=== PATIENT | female | born 1980 | race Caucasian/White ===

== ENCOUNTER 2016-11-08 11:40 | Emergency (ER) | payer OTHER ==
[2016-11-08 11:53] VITALS: BP 142/73; PULSE 53; RESP 16; O2SAT 99
--- NOTE | 2016-11-08 12:08 | ED.REPORT ---
HPI-Abd Pain F Under 39 Date of Service Nov 08, 2016 ED Provider: Ariel Tanner MD The pt is a 35 y/o female with no pertinent hx who presents to the ED complaining of right flank pain that radiates to her suprapubic region, onset a few hours ago. She describes her pain as "dull and sharp" and rates it "worse than 10" in severity. Her pain is exacerbated with movement and palpation. Associated sx include nausea and vomiting. She denies fever, dysuria, and hematuria. The pt does not have a hx of kidney infection and kidney stones. Nursing Notes Stated Complaint: ABDOMINAL PAIN Chief Complaint: Female Abdominal Pain Nursing Notes Reviewed: Yes ([employer], [employer] NOT RECONCILED) Allergies: Coded Allergies: citric acid (Verified Allergy, Severe, ANAPHYLATIC SHOCK NEEDS TO BE PRETREATED WITH BENEDRYL, 12/16/15) desmopressin (Verified Allergy, Severe, ANAPHYLATIC SHOCK NEEDS TO BE PRETREATED WITH BENEDRYL, 12/16/15) sodium phosphate (Verified Allergy, Severe, ANAPHYLATIC SHOCK NEEDS TO BE PRETREATED WITH BENEDRYL, 12/16/15) hydrocodone (Verified Adverse Reaction, Intermediate, GI, 12/16/15) Scheduled PRN Ibuprofen (Ibuprofen) 400 Mg Tablet 400 MG PO TID PRN PRN For Pain Ondansetron ODT (Ondansetron ODT) 8 Mg Tab.rapdis 8 MG PO Q4H PRN PRN For Nausea oxyCODONE-Acetaminophen 5-325 mg (oxyCODONE-Acetaminophen 5-325 mg) 1 Each Tablet 1-2 TAB PO Q4H PRN PRN For Pain General Time Seen by MD: 12:17 Chief Complaint Flank pain right Hx Obtained From: Patient Arrived By: Walk-in Sudden in Onset?: Yes Onset Occurred: 1 - 4 hours ago Symptom Duration: Since onset Location: : Suprapubic Quality: Dull, Sharp Radiation: : Suprapubic Severity: Current: Severe Severity: Maximum: Severe Past Medical History Past Medical History Bipolar disorder (on lithium) Anxiety (on Klonopin) "mild" von-willebrand's (only required treatment for hysterectomy) Past Surgical History Reports: Cholecystectomy, Hysterectomy Smoking History Unknown if Ever Smoker Social History Other Social History: Good social support Ambulatory Status Independent Review of Systems Constitutional: Denies: Fever GI: Reports: Abdominal pain, Nausea, Vomiting Female: Reports: Flank pain, Denies: Dysuria, Hematuria Complete sys rev & neg: except as marked. Physical Exam Initial Vital Signs Vital Signs (First) Date Time Temp Pulse Resp B/P Pulse Ox O2 Delivery O2 Flow Rate FiO2 11/08/16 11:53 36.5 53 16 142/73 99 Room Air Initial VS: Reviewed, Vital signs normal Head / Eyes: Atraumatic, Normocephalic Neck: Supple, Non-tender, Full range of motion Extremities: Vascular intact, Neuro intact, No swelling, No tenderness Skin: Warm, Dry, No cyanosis Neurologic: Alert, Oriented, Nonfocal General/Constitutional: Awake, Alert Behavior: Positive: Anxious Dramatic and difficult to evaluate. Apparently writhhing in pain before the first dose of pain medication. Respiratory / Chest: Atraumatic, Breath sounds NL, Breath sounds = bilat, No respiratory distress, No rales, No rhonchi, No wheezing Cardiovascular: Heart rate NL, Regular rhythm, Heart sounds NL, No gallop, No murmurs, No rubs Abdomen: Atraumatic, Soft, No guarding, No rebound Tenderness/Guarding/Rebound: Positive: Tender diffuse (disproportionate tenderness) Back: Atraumatic, Full range of motion Right flank pain with light touch. Interpretation & Diagnostics PROCEDURE: CT KUB ([id number]) IMPRESSION: 1. No renal stone hydronephrosis. 2. The appendix is mildly enlarged. Air is present within the appendiceal lumen and equivocal thickening of appendiceal wall. The CT findings are equivocal for acute appendicitis. Recommend clinical correlation. 3. A 2 cm cyst in the right ovary. There is a small amount of free fluid in the cul-de-sac. Dictated by: Vincent Jain M.D. on 11/08/2016 at 13:20 Approved by: Vincent Jain M.D. on 11/08/2016 at 13:30 Lab Results Interpretation Result Diagram: 11/08/16 1434 11/08/16 1434 Test 11/08/16 12:10 11/08/16 12:30 11/08/16 14:34 11/08/16 15:27 Urine Color Yellow (YELLOW) Urine Appearance Cloudy (CLEAR,HAZY) Urine pH 8.0 (5.0-8.0) Urine Specific [place] 1.020 (1.003-1.035) Urine Protein Negativemg/dL (NEG,TRACE) Urine Glucose (UA) Negativemg/dL (NEGATIVE) Urine Ketones Negativemg/dL (NEGATIVE) Urine Occult Blood Negative (NEGATIVE) Urine Nitrite Negative (NEGATIVE) Urine Bilirubin Negative (NEGATIVE) Urine Urobilinogen Normalmg/dL (NORMAL) Urine Leukocyte Esterase Negative (NEGATIVE) Urine RBC 0-2/hpf (0-2) Urine WBC 0-5/hpf (0-5) Urine Epithelial Cells Occasional/hpf (NONE-MOD) Urine Crystals Amorphous phosphates Urine Bacteria Moderate/hpf (NONE-FEW) Urine Hyaline Casts None/lpf (NONE) Urine Granular Casts None seen (NONE SEEN) Urine Waxy Casts None seen (NONE SEEN) Urine Red Blood Cell Casts None seen (NONE SEEN) Urine White Blood Cell Casts None seen (NONE SEEN) Urine Mucus None seen (None Seen) Urine Trichomonas None seen (NONE SEEN) Urine Yeast None (NONE SEEN) Urinalysis Comment None Urine Culture Reflexed Indicated Magnesium Level 2.2mg/dL (1.6-2.6) Total Bilirubin 0.4mg/dL (0.0-1.2) Aspartate Amino Transf (AST/SGOT) 12U/L (0-50) Alanine Aminotransferase (ALT/SGPT) 9U/L (0-32) Alkaline Phosphatase 49U/L (25-150) Total Protein 7.1g/dL (6.4-8.4) Albumin 4.4g/dL (3.4-5.0) Lipase 31U/L (13-60) White Blood Count 6.6th/mm3 (3.8-10.1) Red Blood Count 4.51mil/mm3 (3.90-5.20) Hemoglobin 13.6g/dL (12.0-15.6) Hematocrit 39.6% (35.0-46.0) Mean Corpuscular Volume 87.8fL (81-100) Mean Corpuscular Hemoglobin 30.2pg (27.0-35.0) Mean Corpuscular Hemoglobin Concent 34.3% (32.0-37.0) Red Cell Distribution Width 11.8% (12.3-15.4) Platelet Count 150bil/L (150-400) Neutrophils (%) (Auto) 79.1% (40-74) Lymphocytes (%) (Auto) 16.6% (14-46) Monocytes (%) (Auto) 3.5% (4-12) Eosinophils (%) (Auto) 0.3% (0-5) Basophils (%) (Auto) 0.2% (0-3) Sodium Level 141mEq/L (134-144) Potassium Level 3.9mEq/L (3.5-5.2) Chloride Level 111mEq/L (97-108) Carbon Dioxide Level 16mmol/L (18-29) Blood Urea Nitrogen 17mg/dL (6-20) Creatinine 0.91mg/dL (0.57-1.00) Estimat Glomerular Filtration Rate 100mL/min (>59) Glucose Level 113mg/dL (60-99) Calcium Level 9.3mg/dL (8.5-10.1) Hold Rollins Top Tube Received (Received) Lab Results Interpretation: Ultrasound is a small hemorrhagic ovarian cyst on the right with trace fluid Serial CBCs normal with no change hematocrit CMP mild metabolic acidosis improved. Patient status post hysterectomy him a not performed Re-Eval/Medical Decision Med Decision/Clinical Course This is a 35-year-old male presents with acute onset of right flank and abdominal pain sudden onset this morning. She denies prior history of similar symptoms or kidney stones, reports the pain is severe after brought her here. She arrives in moderate pain, and has somewhat disproportionate amount tenderness to light touch anywhere causes severe pain that she rates 13 out of 10. She is afebrile with normal vital signs. An IV is placed and titrated pain medicine was given, the abdomen about a reexamination is soft without signs of farideh peritonitis. Blood work is normal, CT KUB suggestive of ovarian cyst, although are pearly appendicitis was raised as an unlikely possibility by the radiologist-however there are no clinical features on history or exam grossly suggest appendicitis, a pelvic ultrasound was obtained for further evaluation and does confirm the presence of a small hemorrhagic cyst. This fits with the clinically presentation and is thelikely etiology. Patient reports history of very mild von Willebrand's, she did require some sort of factor treatment when she required her hysterectomy, but otherwise has not required any factor replacement or had issues. She is hemodynamically normal, serial hematocrits are normal, she was in the department for numerous hours before the ultrasound was obtained with only a trace fluid-there are no indicates of ongoing or severe hemorrhage indicating need for surgical intervention at this time. The patient is being discharged on ibuprofen and oxycodone for pain control. Routine return precautions reviewed. Patient is discharged in stable condition Source of Hx: Old records Re-Evaluation/Progress #1: Time of Eval: 15:43 Patient Status: Condition improved Re-Evaluation/Progress Note: Rechecked pt. Discussed CT results and informed the pt that US is pending. She understands. All questions answered. Re-Evaluation/Progress #2: Time of Eval: 17:16 Patient Status: Condition improved Re-Evaluation/Progress Note: Rechecked pt. Discussed lab results, imaging results, diagnosis and plan to discharge. Pt understands and agrees with the plan. F/U instruction and RTER warning given. All questions addressed. Differential Diagnosis: Positive: Acute abdominal pain, Ovarian cyst, Negative: Ectopic , Esophageal rupture, Gun shot wound abdomen, Ovarian torsion, Peritonitis, Pyelonephritis, Stab wound abdomen, Urinary tract infection, Urolithiasis Counseled Regarding: Diagnosis Discharge & Departure Primary Impression: Hemorrhagic ovarian cyst Disposition: Home Discharge Condition All VS Reviewed: Yes Condition: Stable Additional Instructions: 1. Your tests (CT Scan and ultrasound) reveal a small, hemorrhagic right ovarian cyst causing her pain. 2. Your blood counts remain normal, ultrasound and CT did not reveal signs of significant hemorrhage, there are no findings that this requires surgery. Although painful, symptoms expect to resolve with time. 3. Activities as tolerated. 4. Take ibuprofen 400 800 mg 3 times a day as needed for pain. 5. If needed also take oxycodone/APAP 05/325 one two tabs every 4-6 hours for pain control. Note: This medication contains narcotic and causes drowsiness, no driving for at least 4-6 hours after taking. 6. If needed for nausea take ondansetron 8 mg-let dissolve under the tongue-up to every 4 hours. 7. Return if new, worsening or uncontrolled symptoms occur. Referrals: Aden Regan DO OTHER,PHYSICIAN Scribe Attestation Portions of this note were transcribed by Wilder Benitez. I,, personally performed the history,physical exam and medical decision-making;I reviewed and confirmed the accuracy of the information in the transcribed note. Signed by Diane Cespedes. 11/08/16 copies to: Aden Regan Matthew F MD Nov 08, 2016 12:08 Wilder Benitez Nov 08, 2016 12:22
[2016-11-08] MEDS ORDERED: Ondansetron 2 mg/mL 2 mL Inj IVPUSH ONE ×2 (12:10→14:20)
[2016-11-08] MEDS: HYDROmorphone 0.5 mg/0.5 mL iSecure Syringe IVPUSH PRN ×3 (12:17→16:47)
[2016-11-08 12:36] VITALS: BP 140/73; PULSE 18; PULSE 47; RESP 20; O2SAT 99
[2016-11-08 12:40] LABS: BASOPHILS % (AUTO) 0.3 % (0-3); EOSINOPHILS % (AUTO) 2.1 % (0-5); MONOCYTES % (AUTO) 5.8 % (4-12); Mean Corpuscular Hemoglobin 29.8 pg (27.0-35.0); Mean Corpuscular Volume 86.1 fL (81-100); NEUTROPHILS % (AUTO) 60.6 % (40-74); Platelet Count 156 bil/L (150-400)
[2016-11-08 13:01] LABS: COLOR,URINE YELLOW (YELLOW)
[2016-11-08 13:02] LABS: APPEARANCE,URINE CLOUDY (CLEAR,HAZY); OCCULT BLOOD,URINE NEGATIVE (NEGATIVE); UROBILINOGEN,URINE NORMAL (NORMAL)
[2016-11-08 13:10] LABS: Magnesium 2.2 mg/dL (1.6-2.6)
[2016-11-08 13:32] VITALS: BP 120/60; PULSE 45; RESP 18; O2SAT 95
--- NOTE | 2016-11-08 13:32 | DRSVH ---
PROCEDURE: CT KUB (PNL-7475) INDICATIONS: 35 year-old woman with right flank pain. TECHNIQUE: Noncontrast 5 mm thick sections acquired from the diaphragms to the symphysis. 5 mm thick coronal an d sagittal reformats were then performed. For radiation dose reduction, the following was used: aut omated exposure control, adjustment of mA and/or kV according to patient size. COMPARISON: None. FINDINGS: Image quality: Excellent. Lung bases: Lung bases are clear. Heart size is normal. Urinary system: Both kidneys are normal in size. No kidney stones. No hydronephrosis or perinephri c fat stranding. Both ureters appear non-dilated throughout their expected courses. Bladder wall th ickness is normal; no calcified bladder stones. Other solid organs: Liver and spleen are normal in size. Gallbladder is surgically absent. Pancrea s is normal in contours. No adrenal nodules. Peritoneum and bowel: Unenhanced bowel loops demonstrate normal wall thickness and caliber. The appe ndix measures 8 mm in diameter. There is air within the appendiceal lumen. There is equivocal thicken ing of the appendiceal wall. A small amount of free fluid is noted in the pelvis. No free air. Nodes and vessels: No retroperitoneal or mesenteric adenopathy by size criteria. Aorta and inferior vena cava are normal in caliber. Abdominal wall: No ventral hernias. Pelvis: A small amount of free pelvic fluid is noted in the cul-de-sac. No inguinal hernias or adeno santiago. Uterus is absent. There is a 2 cm cyst in the right ovary. Bones: No suspicious bony lesions. No vertebral body compression fractures. IMPRESSION: 1. No renal stone hydronephrosis. 2. The appendix is mildly enlarged. Air is present within the appendiceal lumen and equivocal thicken ing of appendiceal wall. The CT findings are equivocal for acute appendicitis. Recommend clinical cor relation. 3. A 2 cm cyst in the right ovary. There is a small amount of free fluid in the cul-de-sac. Dictated by: Vincent Jain M.D. on 11/08/2016 at 13:20 Approved by: Vincent Jain M.D. on 11/08/2016 at 13:30
[2016-11-08] MEDS ORDERED: 0.9% Sodium Chloride 1,000 ML IV ONE (13:55)
[2016-11-08 15:13] LABS: BASOPHILS % (AUTO) 0.2 % (0-3); EOSINOPHILS % (AUTO) 0.3 % (0-5); MONOCYTES % (AUTO) 3.5 % (4-12); Mean Corpuscular Hemoglobin 30.2 pg (27.0-35.0); Mean Corpuscular Volume 87.8 fL (81-100); NEUTROPHILS % (AUTO) 79.1 % (40-74); Platelet Count 150 bil/L (150-400)
[2016-11-08] MEDS ORDERED: oxyCODONE-Acetamin 5-325 mg Tablet PO ONE (15:55)
[2016-11-08] MEDS ORDERED: ONDA8TAB10 PO (16:54)
[2016-11-08] MEDS ORDERED: OXYC1TAB24 PO (16:54)
[2016-11-08] MEDS ORDERED: IBUP400T22 PO (16:54)
[2016-11-08 17:37] VITALS: BP 145/77; PULSE 46; O2SAT 100
--- NOTE | 2016-11-08 20:24 | DRSVH ---
PROCEDURE: US PELVIC SONOGRAM WITH TRANSVAG AND DOPPLER, LIMITED INDICATIONS: RLQ pain ?ovary TECHNIQUE: Real-time scanning was performed of the pelvic organs, with image documentation. Additional endovagi nal scanning was necessary due to incomplete visualization of the adnexal and endometrial structures by transabdominal scanning. COMPARISON: [facility], CT, CT ABD PELVIS W CON, 08/21/2016, 17:30. FINDINGS: (orthogonal measurements) Right ovary size: 3.79 cm, 3.44 cm, 2.36 cm, 1.83 cm, 2.09 cm Left ovary size: Normal seen. Transabdominal scanning: Limited scanning through the kidneys shows no hydronephrosis. No pathologi c free abdominal or pelvic fluid. Endovaginal scanning: Uterus: Hysterectomy. Ovaries: Left ovary not visualized. Complex, thickwalled cyst involves the right ovary measure 1.8 x 1.6 x 1.8 cm. IMPRESSION: 1. Complex, thick-walled right ovarian cyst likely a hemorrhagic cyst. Differential diagnoses includ e an endometrioma and less likely, a tubo-ovarian abscess or neoplasm. Recommend short term followup pelvic ultrasound in 6-12 weeks to assess for temporal resolution. Dr. Tanner given results by the hospitality services manager at 1530 hrs. 11/08/2016. Dictated by: Johnathon Brown Theo Interpreted: Vincent Jain MD on 11/08/2016 at 15:39 Approved by: Vincent Jain M.D. on 11/08/2016 at 20:22
== END 2016-11-08 17:38 | disposition home or self-care (01) ==
LOC: EDBD 11:40 → EDUNIT# 11:40 → SED 11:40
DX: N83.201 Unspecified ovarian cyst, right side (principal); R11.2 Nausea with vomiting, unspecified; F31.9 Bipolar disorder, unspecified; F41.9 Anxiety disorder, unspecified; Z90.49 Acquired absence of other specified parts of digestive tract; Z90.710 Acquired absence of both cervix and uterus; Z88.5 Allergy status to narcotic agent; Z88.8 Allergy status to other drugs, medicaments and biological substances
CPT/HCPCS: 36415; 74176; 76830; 76856; 80048; 80053; 81000; 81025; 82803; 83690; 83735; 85025; 87086; 87088; 93976; 96374; 96375; 96376; 99285; G0463; J1170; J1885; J2405; J7030